=== PATIENT | female | born 1970 | race Caucasian/White ===

== ENCOUNTER 2019-06-03 16:44 | Outpatient (CLI) | payer OTHER ==
--- NOTE | 2019-06-05 01:46 | XRAY Report ---
Reason: LOW BACK PAIN Procedure Date: 06/03/2019 Accession Number: [id number] / [id number] Procedure: XR - Lumbar Spine 2 View CPT Code: Final Report FULL RESULT: EXAM: THORACIC SPINE RADIOGRAPHY, 3 VIEWS LUMBAR SPINE RADIOGRAPHY, 2 VIEWS SACRUM/COCCYX RADIOGRAPHY, 2 VIEWS EXAM DATE: 06/03/2019 05:07 PM. CLINICAL HISTORY: LOW BACK PAIN. COMPARISON: LUMBAR SPINE 2 VIEW 06/03/2019 4:49 PM SACRUM/COCCYX 06/03/2019 4:49 PM. FINDINGS: Thoracic spine: The spinal alignment is maintained. The vertebral body heights and intervertebral disk spaces are preserved. No suspicious lytic or blastic lesions are seen. The visible portions of the lungs are clear. Lumbar spine: The spinal alignment is maintained. The vertebral body heights and intervertebral disk spaces are preserved. No suspicious lytic or blastic lesions are seen. The visible bowel gas pattern is nonobstructive. The sacroiliac joints are normal. Phleboliths are seen in the pelvis. Sacrum/coccyx: The spinal alignment is maintained. There is no evidence of acute fracture or subluxation. Phleboliths are seen in the pelvis. The sacroiliac joints are normal. IMPRESSION: No evidence of acute fracture or subluxation. [facility]
--- NOTE | 2019-06-05 01:46 | XRAY Report ---
Reason: LOW BACK PAIN Procedure Date: 06/03/2019 Accession Number: [id number] / [id number] Procedure: XR - Thoracic Spine 2 View CPT Code: Final Report FULL RESULT: EXAM: THORACIC SPINE RADIOGRAPHY, 3 VIEWS LUMBAR SPINE RADIOGRAPHY, 2 VIEWS SACRUM/COCCYX RADIOGRAPHY, 2 VIEWS EXAM DATE: 06/03/2019 05:07 PM. CLINICAL HISTORY: LOW BACK PAIN. COMPARISON: LUMBAR SPINE 2 VIEW 06/03/2019 4:49 PM SACRUM/COCCYX 06/03/2019 4:49 PM. FINDINGS: Thoracic spine: The spinal alignment is maintained. The vertebral body heights and intervertebral disk spaces are preserved. No suspicious lytic or blastic lesions are seen. The visible portions of the lungs are clear. Lumbar spine: The spinal alignment is maintained. The vertebral body heights and intervertebral disk spaces are preserved. No suspicious lytic or blastic lesions are seen. The visible bowel gas pattern is nonobstructive. The sacroiliac joints are normal. Phleboliths are seen in the pelvis. Sacrum/coccyx: The spinal alignment is maintained. There is no evidence of acute fracture or subluxation. Phleboliths are seen in the pelvis. The sacroiliac joints are normal. IMPRESSION: No evidence of acute fracture or subluxation. [facility]
--- NOTE | 2019-06-05 01:46 | XRAY Report ---
Reason: LOW BACK PAIN Procedure Date: 06/03/2019 Accession Number: [id number] / [id number] Procedure: XR - Sacrum/Coccyx CPT Code: Final Report FULL RESULT: EXAM: THORACIC SPINE RADIOGRAPHY, 3 VIEWS LUMBAR SPINE RADIOGRAPHY, 2 VIEWS SACRUM/COCCYX RADIOGRAPHY, 2 VIEWS EXAM DATE: 06/03/2019 05:07 PM. CLINICAL HISTORY: LOW BACK PAIN. COMPARISON: LUMBAR SPINE 2 VIEW 06/03/2019 4:49 PM SACRUM/COCCYX 06/03/2019 4:49 PM. FINDINGS: Thoracic spine: The spinal alignment is maintained. The vertebral body heights and intervertebral disk spaces are preserved. No suspicious lytic or blastic lesions are seen. The visible portions of the lungs are clear. Lumbar spine: The spinal alignment is maintained. The vertebral body heights and intervertebral disk spaces are preserved. No suspicious lytic or blastic lesions are seen. The visible bowel gas pattern is nonobstructive. The sacroiliac joints are normal. Phleboliths are seen in the pelvis. Sacrum/coccyx: The spinal alignment is maintained. There is no evidence of acute fracture or subluxation. Phleboliths are seen in the pelvis. The sacroiliac joints are normal. IMPRESSION: No evidence of acute fracture or subluxation. [facility]
== END 2019-06-03 16:45 | disposition home or self-care (01) ==
LOC: DI 16:44
PROVIDERS: ATTEND Registered Nurse
DX: M54.5 Low back pain (principal)
CPT/HCPCS: 72070; 72100; 72220

== ENCOUNTER 2020-07-12 09:39 | Outpatient (CLI) | payer OTHER ==
[2020-07-12 10:14] LABS: ALBUMIN 3.9 g/dL (3.2-5.5); ALBUMIN/GLOBULIN RATIO 1.2 (1.0-2.2); ALKALINE PHOSPHATASE 34 IU/L (42-121); ALT ALANINE AMINOTRANSFERASE 12 IU/L (10-60); AST ASPARTATE AMINOTRANSFERASE 16 IU/L (10-42); BILIRUBIN,TOTAL 0.6 mg/dL (0.2-1.0); BUN - BLOOD UREA NITROGEN 13 mg/dL (6-20); CALCIUM 8.9 mg/dL (8.5-10.3); CARBON DIOXIDE - CO2 24 mmol/L (21-32); CHLORIDE 106 mmol/L (101-111); CHOL/HDL RATIO 2.7 (<4.4); CHOLESTEROL 186 mg/dL; CREATININE 0.9 mg/dL (0.4-1.0); GLUCOSE 98 mg/dL (70-100); HDL CHOLESTEROL 69 mg/dL; LDL CHOLESTEROL,CALCULATED 92 mg/dL; LDL/HDL RATIO 1.3 (<4.4); SODIUM 137 mmol/L (135-145); TOTAL PROTEIN 7.1 g/dL (6.7-8.2); VLDL CHOLESTEROL 25 mg/dL
[2020-07-12 13:51] LABS: HEMOGLOBIN A1c% 5.2 % (4.27-6.07)
== END 2020-07-12 09:40 | disposition home or self-care (01) ==
LOC: LAB 09:39
PROVIDERS: ATTEND Nurse Practitioner Family
DX: Z13.220 Encounter for screening for lipoid disorders (principal); Z13.1 Encounter for screening for diabetes mellitus; Z11.59 Encounter for screening for other viral diseases
CPT/HCPCS: 36415; 80053; 80061; 83036; 83721; 87902